=== PATIENT | female | born 1980 | race Caucasian/White ===

== ENCOUNTER 2016-12-31 22:14 | Emergency (ER) | payer MEDICAID ==
[~2016-12-31] VITALS: Wt 86.0 kg
[~2016-12-31 22:14] MED LIST: NAPR-260 PO
[2016-12-31] MEDS ORDERED: SODI30SP2 NS (22:47)
[2016-12-31] MEDS ORDERED: ALBU8.5H3 INH (22:47)
[2016-12-31] MEDS ORDERED: BENZ100C70 PO (22:47)
[2016-12-31] MEDS ORDERED: IBUP-1542 PO (22:48)
[2016-12-31] MEDS ORDERED: CETI10CA PO (22:48)
--- NOTE | 2016-12-31 23:20 | ERD ---
ER Documentation Chief Complaint Date/Time DATE: 12/31/16 TIME: 23:18 Chief Complaint cough/chest pain when coughing x 1 week HPI Patient is a 36-year-old female who presents to the ED with cough, congestion 1 week. She denies fever or chills. She denies shortness of breath or difficulty breathing. Denies chest pain. Denies headache or dizziness, neck pain or neck stiffness. Denies leg pain or leg swelling. Denies abdominal pain , nausea, vomiting or diarrhea. States that both of her signs of obvious similar symptoms at home. Has not tried any medication besides Motrin for her symptoms. Denies hemoptysis, night sweats. ROS All systems reviewed and are negative except as per history of present illness. Medications Home Meds Active Scripts Ibuprofen* (Motrin*) 600 Mg Tab, 600 MG PO Q6, #30 TAB Prov:NICOLE MORALEZ-C 12/31/16 Cetirizine Hcl* (Zyrtec*) 10 Mg Capsule, 10 MG PO DAILY, #10 TAB.CHEW Prov:NICOLE MORALEZ-Kim 12/31/16 Sodium Chloride (Saline Nasal [place]) 30 Ml [place], 30 ML NS BID for 14 Days, SPRAY Prov:NICOLE MORALEZ-C 12/31/16 Albuterol Sulfate* (Proair HFA*) 8.5 Gm Hfa.aer.ad, 2 PUFF INH Q4, #1 INHALER Prov:NICOLE MORALEZ-C 12/31/16 Benzonatate* (Tessalon Perle*) 100 Mg Capsule, 100 MG PO Q8H Y for COUGH for 14 Days, CAP Prov:NICOLE MORALEZ-C 12/31/16 Naproxen* (Naprosyn*) 500 Mg Tablet, 500 MG PO BID Y for PAIN AND/OR INFLAMMATION, #30 TAB Prov:JOSE D JOSEPH 04/16/16 Allergies Allergies: Coded Allergies: No Known Drug Allergy (Verified Allergy, Unknown, 12/31/16) PMhx/Soc History of Surgery: Yes (GALLBLADDER REMOVAL 9 YRS AGO, CS X 4) Anesthesia Reaction: No Hx Neurological Disorder: No Hx Respiratory Disorders: No Hx Cardiac Disorders: No Hx Psychiatric Problems: No Hx Miscellaneous Medical Probl: No Hx Alcohol Use: No Hx Substance Use: No Hx Tobacco Use: No FmHx Family History: No coronary disease, No diabetes, No other Physical Exam Vitals Vital Signs Date Time Temp Pulse Resp B/P Pulse Ox O2 Delivery O2 Flow Rate FiO2 12/31/16 22:18 97.4 69 20 131/72 100 Physical Exam GENERAL: Well-developed, well-nourished female. Appears in no acute distress. HEAD: Normocephalic, atraumatic. EYES: Pupils are equally reactive bilaterally. EOMs grossly intact. No conjunctival erythema. ENT: Moist mucous membranes. No uvula deviation. No kissing tonsils. No exudates. NECK: Supple. No lymphadenopathy or thyromegaly. No meningismus. negative kernig. negative brudinski. LUNG: Clear to auscultation bilaterally. No rhonchi, wheezing, rales or coarse breath sounds. HEART: Regular rate and rhythm. No murmurs, rubs or gallops. Extremities: Equal pulses bilaterally. No peripheral clubbing, cyanosis or edema. No unilateral leg swelling. NEUROLOGIC: Alert and oriented. Moving all four extremities. 5/5 strength in all extremities. Normal speech. Steady gait. SKIN: Normal color. Warm and dry. No rashes or lesions. Capillary refill < 2 seconds Procedures/MDM ER COURSE: I kept the patient and/or family informed of laboratory and diagnostic imaging results throughout the emergency room course. MEDICAL DECISION MAKING: This is a 36-year-old female who presents with cough, congestion 1 week. Vital signs were reviewed. Patient is afebrile. Patient is not hypoxic. Patient is not toxic or ill-appearing.. Patient likely has URI of viral etiology. I do not think a chest x-ray was warranted at this time as patient does not show signs of respiratory distress and her lung examination is within limits and she is afebrile. Low suspicion for pneumonia, PE, pneumothorax, ACS, epiglottitis, obstruction, TB, pertussis, meningitis, sepsis. DISCHARGE: At this time, patient is stable for discharge and outpatient management with no new complaints during the ER course. Patient was sent home with Zyrtec, saline nasal spray, pro-air, Tessalon Perles and Motrin. Patient will be discharged home with instructions to recheck for new or worsening symptoms such as fever, nausea, weakness, LOC and to follow up with primary care in the next 1-2 days. Patient was advised to return to the ER for any new or worsening symptoms. Plan was discussed and patient and/or family understands and agrees. Home instructions were given. Departure Diagnosis: Primary Impression: URI, acute Condition: Stable Patient Instructions: Uri, Viral, No Abx (Adult) Additional Instructions: Call your primary care doctor TOMORROW for an appointment during the next 1-2 days.See the doctor sooner or return here if your condition worsens before your appointment time. NICOLE MORALEZ PA-C December 31, 2016 23:20
== END 2016-12-31 23:07 | disposition home or self-care (01) ==
LOC: FTE 22:14
DX: J06.9 Acute upper respiratory infection, unspecified (principal)
CPT/HCPCS: 99284

== ENCOUNTER 2017-01-05 22:40 | Emergency (ER) | payer MEDICAID ==
[~2017-01-05] VITALS: Ht 152.4 cm; Wt 86.1 kg
[~2017-01-05 22:40] MED LIST changes: +ALBU8.5H3 INH; +BENZ100C70 PO; +CETI10CA PO; +IBUP-1542 PO; +SODI30SP2 NS
[2017-01-05 22:46] VITALS: Ht 152.4 cm; Wt 86.1 kg
[2017-01-05] MEDS ORDERED: IBUPROFEN 800 MG TAB PO ONE (23:30)
--- NOTE | 2017-01-05 23:52 | ERD ---
ER Documentation Chief Complaint Date/Time DATE: 01/05/17 TIME: 23:49 Chief Complaint right hand pain w/ swelling x 5 days, denies injury HPI This is a 36-year-old female presents emergency department for right and elbow pain and swelling 5 days. Denies any recent injury or trauma to area. No recent fall. No erythema, induration, warmth or drainage. No laceration. Denies fever chills. Patient did not try any medications at home. No loss of sensation. Denies numbness or tingling to area. ROS All systems reviewed and are negative except as per history of present illness. Medications Home Meds Active Scripts Ibuprofen* (Motrin*) 600 Mg Tab, 600 MG PO Q6, #15 TAB Prov:LENNY BUTLER NP 01/06/17 Ibuprofen* (Motrin*) 600 Mg Tab, 600 MG PO Q6, #30 TAB Prov:NICOLE MORALEZ-C 12/31/16 Cetirizine Hcl* (Zyrtec*) 10 Mg Capsule, 10 MG PO DAILY, #10 TAB.CHEW Prov:NICOLE MORALEZ-C 12/31/16 Sodium Chloride (Saline Nasal [place]) 30 Ml [place], 30 ML NS BID for 14 Days, SPRAY Prov:NICOLE MORALEZ-C 12/31/16 Albuterol Sulfate* (Proair HFA*) 8.5 Gm Hfa.aer.ad, 2 PUFF INH Q4, #1 INHALER Prov:NICOLE MORALEZ-C 12/31/16 Benzonatate* (Tessalon Perle*) 100 Mg Capsule, 100 MG PO Q8H Y for COUGH for 14 Days, CAP Prov:NICOLE MORALEZ-C 12/31/16 Naproxen* (Naprosyn*) 500 Mg Tablet, 500 MG PO BID Y for PAIN AND/OR INFLAMMATION, #30 TAB Prov:JOSE D JOSEPH 04/16/16 Allergies Allergies: Coded Allergies: No Known Drug Allergy (Verified Allergy, Unknown, 12/31/16) PMhx/Soc History of Surgery: Yes (GALLBLADDER REMOVAL 9 YRS AGO, CS X 4) Anesthesia Reaction: No Hx Neurological Disorder: No Hx Respiratory Disorders: No Hx Cardiac Disorders: No Hx Psychiatric Problems: No Hx Miscellaneous Medical Probl: No Hx Alcohol Use: No Hx Substance Use: No Hx Tobacco Use: No Smoking Status: Never smoker Physical Exam Vitals Vital Signs Date Time Temp Pulse Resp B/P Pulse Ox O2 Delivery O2 Flow Rate FiO2 01/06/17 02:03 98.3 97 20 116/65 97 Room Air 01/05/17 22:46 97.8 66 20 122/80 100 Physical Exam Const: Alert, [id number] Head: Atraumatic Eyes: Normal Conjunctiva ENT: Normal External Ears, Nose and Mouth. Neck: Full range of motion..~ No meningismus. Resp: Clear to auscultation bilaterally Cardio: Regular rate and rhythm, no murmurs Abd: Soft, non tender, non distended. Normal bowel sounds Skin: No petechiae or rashes Back: No midline or flank tenderness Ext: No cyanosis, or edema. Radial pulses 2+ bilaterally. Capillary refill less than 3 seconds to bilateral hands. Sensation fully intact. Full range of motion to right wrist and elbow. Neur: Awake and alert Psych: Normal Mood and Affect Results 24 hrs Current Medications Medications (Trade) Dose Ordered Sig/[place] Route PRN Reason Start Time Stop Time Status Last Admin Dose Admin Ibuprofen (Motrin) 800 mg ONCE ONCE PO 01/05/17 23:30 01/05/17 23:31 DC 01/06/17 00:12 Procedures/MDM Patient: DONNA WYATT : 1980 Age: 36 Sex: F MR #: [id number] DOS: 01/05/172326 Ordering MD: LENNY BUTLER NP Location: [facility] Room/Bed: PROCEDURE: Right forearm x-ray CLINICAL INDICATION: Pain TECHNIQUE: 2 views right forearm COMPARISON: None FINDINGS: No acute fracture or dislocation. Soft tissues unremarkable. IMPRESSION: No acute fracture. Patient: DONNA WYATT : 1980 Age: 36 Sex: F MR #: [id number] DOS: 01/05/172326 Ordering MD: LENNY BUTLER NP Location: [facility] Room/Bed: PROCEDURE: X-ray right elbow CLINICAL INDICATION: Right elbow pain TECHNIQUE: 3 views right elbow COMPARISON: None FINDINGS: No acute fracture or dislocation. Soft tissues unremarkable. IMPRESSION: No acute fracture. MDM: 36-year-old female presents emergency department for right forearm and elbow pain 5 days. No swelling, erythema, warmth, induration or drainage. No laceration. Denies any recent injury or trauma to area. No recent fall. No fevers or chills. Patient is requesting x-ray. X-rays right forearm and right elbow reviewed by radiologist as no acute fracture. Vital signs are stable. Patient remains alert and cooperative throughout ED visit. Low suspicion for acute dislocation, fracture or cellulitis. Patient is appropriate for outpatient management will be given prescription for ibuprofen. Instructed patient to follow-up with primary care provider or orthopedic physician for reassessment. Return to ED for any high fever, chest pain, difficulty breathing, shortness breath, wheezing, vomiting, diarrhea, abdominal pain or any new or worsening symptoms. Patient verbalizes understanding. All questions answered at discharge. Departure Diagnosis: Primary Impression: Tendinitis Condition: Stable LENNY BUTLER NP January 05, 2017 23:52
--- NOTE | 2017-01-06 01:32 | RADRPT ---
PROCEDURE: Right forearm x-ray CLINICAL INDICATION: Pain TECHNIQUE: 2 views right forearm COMPARISON: None FINDINGS: No acute fracture or dislocation. Soft tissues unremarkable. IMPRESSION: No acute fracture. RPTAT: [facility] Physician Lindsay Date Time Electronically viewed and signed by Crystal Amor Physician on 01/06/2017 01:31 RS/
--- NOTE | 2017-01-06 01:39 | RADRPT ---
PROCEDURE: X-ray right elbow CLINICAL INDICATION: Right elbow pain TECHNIQUE: 3 views right elbow COMPARISON: None FINDINGS: No acute fracture or dislocation. Soft tissues unremarkable. IMPRESSION: No acute fracture. RPTAT: [facility] Physician Lindsay Date Time Electronically viewed and signed by Crystal Amor Physician on 01/06/2017 01:37 RS/
[2017-01-06] MEDS ORDERED: IBUP-1542 PO (01:45)
[2017-01-06 02:03] VITALS: BP 116/65; PULSE 97; RESP 20; TEMP 98.3
== END 2017-01-06 02:07 | disposition home or self-care (01) ==
LOC: FTE 22:40
DX: M77.8 Other enthesopathies, not elsewhere classified (principal)
CPT/HCPCS: 73080; 73090; Z7610

== ENCOUNTER 2017-12-06 17:54 | Emergency (ER) | END 2017-12-06 23:58 | disposition home or self-care (01) ==

== ENCOUNTER 2018-01-02 10:46 | Emergency (ER) | END 2018-01-02 11:11 | disposition home or self-care (01) ==

== ENCOUNTER 2018-09-12 15:07 | Emergency (ER) | payer MEDICAID ==
[~2018-09-12] VITALS: Ht 147.3 cm; Wt 80.2 kg
[~2018-09-12 15:07] MED LIST changes: -ALBU8.5H3 INH; +ALBU8.5H8 INH; +BENZ-6 PO; -BENZ100C70 PO; +CEPH-443 PO; +GUAI5SYR2 PO; +MAG-19 PO; -NAPR-260 PO; +NAPR-985 PO; +OMEP20CA16 PO
[2018-09-12 15:08] VITALS: BP 135/80; PULSE 86; RESP 14; Ht 147.3 cm; Wt 80.2 kg
[2018-09-12] MEDS ORDERED: NAPR-688 PO (16:25)
--- NOTE | 2018-09-12 17:58 | ERD ---
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 She denies any trauma, fevers, she states that she does have full range of motion ROS All systems reviewed and are negative except as per history of present illness. Medications Home Meds Active Scripts Naproxen* (Naproxen*) 500 Mg Tablet, 500 MG PO BID, #30 TAB Prov:LINDA DUGGAN-C 09/12/18 Ibuprofen* (Motrin*) 600 Mg Tab, 600 MG PO Q6, #30 TAB Prov:CARLOS MARQUEZ-C 01/02/18 Cetirizine Hcl* (Zyrtec*) 10 Mg Capsule, 10 MG PO DAILY, #10 TAB.CHEW Prov:CARLOS MARQUEZ-C 01/02/18 Guaifenesin-Dextromethorphan* (Robitussin* DM) 100MG/10MG/5ML Syrup, 5 ML PO Q4H PRN for COUGH, #4 OZ Prov:CARLOS MARQUEZ-C 01/02/18 Benzonatate* (Tessalon Perle*) 100 Mg Capsule, 100 MG PO Q8H PRN for COUGH, #20 CAP Prov:CARLOS MARQUEZ-C 01/02/18 Magaldrate/Simethicone* (Mylanta*) 355 Ml Susp, 30 ML PO QID PRN for GASTROINTESTINAL UPSET, #1 BOTTLE Prov:ISSAC,AUSTYN 12/06/17 Omeprazole* (Omeprazole*) 20 Mg Capsule.dr, 20 MG PO DAILY for 15 Days, #15 Prov:ISSAC,AUSTYN 12/06/17 Cephalexin* (Keflex*) 500 Mg Capsule, 500 MG PO TID for 7 Days, #21 CAP Prov:ISSAC,AUSTYN 12/06/17 Ibuprofen* (Motrin*) 600 Mg Tab, 600 MG PO Q6, #15 TAB Prov:LENNY BUTLER NP 01/06/17 Ibuprofen* (Motrin*) 600 Mg Tab, 600 MG PO Q6, #30 TAB Prov:DANNIE MORALEZAZ PA-C 12/31/16 Cetirizine Hcl* (Zyrtec*) 10 Mg Capsule, 10 MG PO DAILY, #10 TAB.CHEW Prov:OPALNICOLE MÁRQUEZ PA-C 12/31/16 Sodium Chloride (Saline Nasal [place]) 30 Ml [place], 30 ML NS BID for 14 Days, SPRAY Prov:NICOLE MORALEZ PA-C 12/31/16 Albuterol Sulfate* (Proair HFA*) 8.5 Gm Hfa.aer.ad, 2 PUFF INH Q4, #1 INHALER Prov:JESSICANICOLE ESPINAL PA-C 12/31/16 Benzonatate* (Tessalon Perle*) 100 Mg Capsule, 100 MG PO Q8H PRN for COUGH for 14 Days, CAP Prov:OPALNICOLE MÁRQUEZ PA-C 12/31/16 Naproxen* (Naprosyn*) 500 Mg Tablet, 500 MG PO BID PRN for PAIN AND/OR INFLAMMATION, #30 TAB Prov:JOSE D JOSEPH MD 04/16/16 Allergies Allergies: Coded Allergies: No Known Drug Allergy (Verified Allergy, Unknown, 12/31/16) PMhx/Soc History of Surgery: Yes (GALLBLADDER REMOVAL 9 YRS AGO, CS X 4) Anesthesia Reaction: No Hx Neurological Disorder: No Hx Respiratory Disorders: No Hx Cardiac Disorders: No Hx Psychiatric Problems: No Hx Miscellaneous Medical Probl: No Hx Alcohol Use: No Hx Substance Use: No Hx Tobacco Use: No Smoking Status: Never smoker Physical Exam Vitals Vital Signs Date Temp Pulse Resp B/P (MAP) Pulse Ox O2 O2 Flow FiO2 Time Delivery Rate 09/12/18 98.6 86 14 135/80 99 15:08 (98) Physical Exam Const: No acute distress Head: Atraumatic Eyes: Normal Conjunctiva ENT: Normal External Ears, Nose and Mouth. Neck: Full range of motion. No meningismus. Resp: Clear to auscultation bilaterally Cardio: Regular rate and rhythm, no murmurs Abd: Soft, non tender, non distended. Normal bowel sounds Skin: No petechiae or rashes Back: No midline or flank tenderness Ext: Full range of motion of all extremities, tender to palpation of the left lateral tendon on the elbow Neur: Awake and alert Psych: Normal Mood and Affect Procedures/MDM 38-year-old female presents emergency department complaining of left lateral elbow pain likely to be lateral epicondylitis. There is no evidence of any fracture dislocation. Patient was placed in [place]a bandage. She is given prescription for anti-inflammatories and ibuprofen and instructions to follow-up with her primary care physician for referral for orthopedic Departure Diagnosis: Primary Impression: Pain of left arm Condition: Stable Patient Instructions: What is Tennis Elbow?, Tennis Elbow Referrals: NO PRIMARY,CARE PHYSICIAN (PCP) Additional Instructions: Visite a don cornelia fuller para un EXAMEN.Regrese a estas instalaciones si no se mejora robin esperbamos o robin le dijimos. [place] toda la medicina kristie y robin se le indic. Regrese a estas instalaciones si no se mejora robin esperbamos o robin le dijimos. LINDA DUGGAN PA-C Sep 12, 2018 17:58
== END 2018-09-12 16:52 | disposition home or self-care (01) ==
LOC: FTE 15:07
DX: M79.602 Pain in left arm (principal)
CPT/HCPCS: 73080; Z7502

== ENCOUNTER 2019-05-12 00:32 | Emergency (ER) | payer MEDICAID ==
[~2019-05-12] VITALS: Ht 160 cm; Wt 80.0 kg
[~2019-05-12 00:32] MED LIST changes: +NAPR-688 PO; -OMEP20CA16 PO; +OMEP20CA17 PO
[2019-05-12 00:35] VITALS: Ht 160 cm; Wt 80.0 kg
[2019-05-12] MEDS ORDERED: LIDOCAINE/MYLANTA 40 ML BTL PO STA (03:12)
[2019-05-12] MEDS ORDERED: FAMOTIDINE 20 MG TAB PO STA (03:12)
[2019-05-12 05:10] VITALS: BP 133/63; PULSE 71; RESP 17
== END 2019-05-12 05:14 | disposition home or self-care (01) ==
LOC: E/R 00:32
DX: R10.13 Epigastric pain (principal)
CPT/HCPCS: 80053; 81001; 83690; 84703; 85025; Z7610; 36415; 99283